=== PATIENT | female | born 1970 | race Caucasian/White ===

== ENCOUNTER 2017-03-22 08:36 | Day surgery (SDC) | payer BC ==
[2017-03-19 15:37] LABS: HEMATOCRIT 41.2 % (36.0-48.0); HEMOGLOBIN 13.9 g/dL (12.0-16.0)
[2017-03-19 16:22] LABS: BUN (BLOOD UREA NITROGEN) 14 MG/DL (6-23); CALCIUM, SERUM 9.4 MG/DL (8.5-10.4); CHLORIDE, SERUM 103 MMOL/L (96-112); CO2 (CARBON DIOXIDE) 30 MMOL/L (24-34); CREATININE 0.99 MG/DL (0.55-1.02); GFR AFRICAN AMERICAN 80 ML/MIN (>=60); GFR NON AFRICAN AMERICAN 69 ML/MIN (>=60); GLUCOSE, SERUM 88 MG/DL (60-99); SODIUM, SERUM 140 MMOL/L (135-148)
--- NOTE | ~2017-03-22 | OP ---
Record Of Operation [facility] [address] [place]. [address] NAME: JAMESON WARD : 74 STATUS : [facility]#: [id number] AGE: 46 ADM/REG DATE : 03/22/17 MR#: [id number] REPORT SERV DATE: 03/22/17 DICTATED BY: SHYANNE JIMENEZ JR. DATE: 03/22/17 REPORT STATUS : Draft TRANSCRIBED BY: LUTHER DATE: 03/22/17 DATE OF PROCEDURE: 03/22/2017 SURGEON: Shyanne Jimenez M.D. DESIGN ENGINEERING TECHNICIAN: Eileen Martinez. PROCEDURE: Placement of venous access port with C-arm fluoroscopy. PREOPERATIVE DIAGNOSIS: Carcinoma of the breast. POSTOPERATIVE DIAGNOSIS: Carcinoma of the breast. ANESTHESIA: Local with sedation. INDICATIONS: This patient has a newly diagnosed carcinoma of the breast. Neoadjuvant chemotherapy is planned and venous port placement is indicated for venous access for chemotherapy administration. FINDINGS: They were no unusual findings during the procedure. DESCRIPTION OF PROCEDURE: With adequate sedation, the left side of the neck and chest were prepped and draped sterilely. A mixture of 1% lidocaine and 0.5% Marcaine were used for local infiltration of anesthesia. The right subclavian vein was punctured, and a guidewire was introduced via the Seldinger technique. Under fluoroscopy, this was confirmed to be in the SVC. The peel-away sheath was placed over the wire. The wire and introducer were removed, and the single-lumen catheter was placed through the sheath which was then peeled away and removed. Under fluoroscopy, the tip of the catheter was positioned in the distal SVC. At the SVC-atrial junction, the catheter was trimmed and attached to the port and the locking hub was secured in place. The port was placed into its pocket and secured to the underlying fascia with suture of 2-0 Prolene which also secured the locking hub device. Then, the wound was closed with subcutaneous 3-0 Vicryl and dermal Monocryl. The port aspirated the blood satisfactorily and was flushed with heparinized saline. A sterile dressing was applied. The patient left the operating room in satisfactory condition. The estimated blood loss is 10 mL. TALA/LUTHER Shyanne Jimenez Jr., M.D. / [id number] CC: Record Of Operation [place] [id number] [address] [place] [place]. [id number] NAME: JAMESON WARD : 74 STATUS : [facility] PAT#: [id number] AGE: 46 ADM/REG DATE : 03/22/17 MR#: [id number] REPORT SERV DATE: 03/22/17 DICTATED BY: SHYANNE JIMENEZ JR. DATE: 03/22/17 REPORT STATUS : Draft TRANSCRIBED BY: MODL DATE: 03/22/17 Jared Lisa Jr., M.D.
[~2017-03-22 08:36] MED LIST: KLOR-CON 1010 MEQ PO; L40 PO
[2017-08-05] MEDS ORDERED: NEUR100 PO (12:56)
[2017-08-05] MEDS ORDERED: ZYRTEC ALLGY10 MG PO (12:57)
[2017-08-05] MEDS ORDERED: REG5 PO (12:57)
[2017-08-05] MEDS ORDERED: BIOTIN PO (12:58)
[2017-08-05] MEDS ORDERED: [UNRECOGNIZED DRUG - OTHER] PO (12:58)
[2017-08-05] MEDS ORDERED: HAIR SKIN PO (12:58)
[2017-08-05] MEDS ORDERED: MULTIVITAMIN PO (12:59)
[2017-08-10] MEDS ORDERED: PCET PO (10:21)
== END 2017-03-22 17:52 | disposition home or self-care (01) ==
LOC: SDC 08:36
PROVIDERS: Specialist
PROC: B518ZZA Fluoroscopy of Superior Vena Cava, Guidance (ICD-10-PCS; 2017-03-22)
PROC: 02HV33Z Insertion of Infusion Device into Superior Vena Cava, Percutaneous Approach (ICD-10-PCS; principal; 2017-03-22 10:00)
DX: C50.912 Malignant neoplasm of unspecified site of left female breast (principal); Z17.0 Estrogen receptor positive status [ER+]; I89.0 Lymphedema, not elsewhere classified; G89.29 Other chronic pain; M54.9 Dorsalgia, unspecified; Z87.891 Personal history of nicotine dependence; Z79.899 Other long term (current) drug therapy; Z90.711 Acquired absence of uterus with remaining cervical stump; Z90.89 Acquired absence of other organs; Z98.890 Other specified postprocedural states
CPT/HCPCS: 71010; 71020; 76000; 77001; 80048; 85014; 85018; C1788; J0690; J2250; J2405; J3010